=== PATIENT | male | born 1990 | race Caucasian/White ===

== ENCOUNTER 2017-11-03 09:15 | Emergency (ER) | payer MEDICAID ==
--- NOTE | 2017-11-03 09:56 | ED Physician Documentation ---
PD HPI UPPER EXT INJURY - Stated complaint Stated Complaint: R SHOULDER INJ - Chief complaint Chief Complaint: Ext Problem - History obtained from History obtained from: Patient - History of Present Illness Location: Right, Clavicle, Shoulder Type of injury: Fall (from skateboard yesterday, onto right shoulder, with pain in shoulder and collarbone area.) Where injury occurred: Street Timing - onset: Yesterday Timing - details: Abrupt onset, Still present Worsened by: Moving (abduction and rotational movement, and also with lifting heavier with right arm.), Palpating Associated symptoms: No: Weakness, Numbness Contributing factors: No: Anticoagulated Similar symptoms before: Has not had sx before Recently seen: Not recently seen Review of Systems Skin: denies: Abrasion (s), Laceration (s) Neurologic: denies: Focal weakness, Numbness, Headache, Head injury PD PAST MEDICAL HISTORY - Past Medical History Cardiovascular: None Respiratory: None Neuro: None Musculoskeletal: None - Present Medications Home Medications: Ambulatory Orders Medication Instructions Recorded Confirmed HYDROcod/ACETAM 5/325 [[place] 5/325] 1 tab PO Q6H PRN #15 tablet 11/03/17 - Allergies Allergies/Adverse Reactions: Allergies Allergy/AdvReac Type Severity Reaction Status Date / Time No Known Drug Allergies Allergy Verified 11/03/17 09:49 PD ED PE NORMAL - Vitals Vital signs reviewed: Yes - General General: Alert and oriented X 3, No acute distress, Well developed/nourished - HEENT HEENT: Moist mucous membranes, Pharynx benign, Dentition benign - Neck Neck: Supple, no meningeal sign, No adenopathy - Cardiac Cardiac: RRR, No murmur - Derm Derm: Normal color, Warm and dry, No rash - Extremities Extremities: Other (right clavicle area with tenderness and some swelling. There is not any tenderness along proximal humerus area. ) Results - Vitals Vitals: Vital Signs - 24 hr 11/03/17 11/03/17 09:27 11:05 Temperature 36.6 C 36.8 C Heart Rate 87 88 Respiratory 18 18 Rate Blood Pressure 166/98 H 163/88 H O2 Saturation 100 100 Oxygen O2 Source Room air - Rads (name of study) right shoulder Radiology: Prelim report reviewed (mid shaft clavicle fracture. ) PD MEDICAL DECISION MAKING - ED course Complexity details: reviewed results, re-evaluated patient, d/w patient Departure - Departure Disposition: 01 Home, Self Care Clinical Impression: Fall from skateboard, initial encounter Right clavicle fracture Qualifiers: Encounter type: initial encounter Clavicle location: shaft Fracture type: closed Fracture alignment: nondisplaced Qualified Code(s): S42.024A - Nondisplaced fracture of shaft of right clavicle, initial encounter for closed fracture Condition: Stable Record reviewed to determine appropriate education?: Yes Instructions: ED Fx Clavicle Follow-Up: Donis Ross MD [Provider Admit Priv/Credential] - Prescriptions: HYDROcod/ACETAM 5/325 [[place] 5/325] 1 tab PO Q6H PRN #15 tablet PRN Reason: Pain Comments: Sling for comfort for the arm. Avoid overhead reaching push pull and heavy lifting in particular for the next 3-4 weeks. Follow-up with orthopedics in about 1-1-1/2 weeks, call today for an appointment. Tylenol or ibuprofen if needed for pains. Add hydrocodone if needed for worse pain. This will take about a month to heal up fully. Discharge Date/Time: 11/03/17 11:05
--- NOTE | 2017-11-03 10:26 | XRAY Preliminary Report ---
Exam: XR SHOULDER 3 VIEW RT IMPRESSION: 1. Middle third clavicular fracture as described. 2. No articular abnormality identified. [facility] SITE ID: [id number]
--- NOTE | 2017-11-03 10:27 | XRAY Report ---
EXAM: RIGHT SHOULDER RADIOGRAPHY EXAM DATE: 11/03/2017 10:15 AM. CLINICAL HISTORY: Right shoulder pain. Fell off skateboard last night. COMPARISON: None. TECHNIQUE: 3 views. FINDINGS: Bones: Slightly displaced middle third clavicular fracture with minor cephalad angulation of the frac ture apex. Joints: No subluxation. Glenohumeral and acromioclavicular joints are unremarkable. Soft tissues: Swelling about the clavicular fracture. No periarticular calcification. IMPRESSION: 1. Middle third clavicular fracture as described. 2. No articular abnormality identified. [facility] Referring Provider Line: [phone] SITE ID: [id number]
[2017-11-03] MEDS ORDERED: IBUPROFEN 600 MG TABLET PO STA (10:49)
[2017-11-03] MEDS ORDERED: HYDROcod/ACETAM 5/325 MG TABLET PO STA (10:49)
[2017-11-03 11:41] VITALS: BP 163/88
== END 2017-11-03 11:05 | disposition home or self-care (01) ==
LOC: ED 09:15
DX: S42.021A Displaced fracture of shaft of right clavicle, initial encounter for closed fracture (principal); V00.131A Fall from skateboard, initial encounter; Y93.51 Activity, roller skating (inline) and skateboarding; Y92.410 Unspecified street and highway as the place of occurrence of the external cause
CPT/HCPCS: 73030; 99283; 99284; A9270

== ENCOUNTER 2020-06-26 07:57 | Emergency (ER) | payer SELFPAY ==
--- NOTE | 2020-06-26 08:59 | XRAY Report ---
PROCEDURE: Ankle 3 View RT INDICATIONS: Right ankle pain TECHNIQUE: 3 views of the ankle were acquired. COMPARISON: None FINDINGS: Bones: No fracture or dislocation. The ankle mortise is congruent and maintained. No suspicious lytic or blastic osseous lesion. Soft tissues: Moderate sized tibiotalar joint effusion. Achilles tendon appears normal. IMPRESSION: Moderate-sized tibiotalar joint effusion without acute osseous finding. Findings suggest a possible ligamentous injury. MRI may be helpful if symptoms persist. Reviewed by: Beau Naranjo MD on 06/26/2020 8:57 AM PST Approved by: Beau Naranjo MD on 06/26/2020 8:57 AM PST Station ID: [id number]
--- NOTE | 2020-06-26 08:59 | XRAY Report ---
PROCEDURE: Foot 3 View RT INDICATIONS: Right foot pain TECHNIQUE: 3 views of the foot were acquired. COMPARISON: None FINDINGS: Bones: No fracture or dislocation. Joint spaces are congruent and maintained. No suspicious lytic or blastic osseous lesion. Soft tissues: No radiopaque foreign body. Achilles tendon appears normal. IMPRESSION: No acute finding. Reviewed by: Beau Naranjo MD on 06/26/2020 8:58 AM [facility] Approved by: Beau Naranjo MD on 06/26/2020 8:58 AM [facility] Station ID: [id number]
[2020-06-26 09:33] VITALS: BP 125/75
--- NOTE | 2020-06-26 17:30 | ED Physician Documentation ---
History of Present Illness - Stated complaint Stated Complaint: RT ANKLE INJ - Chief complaint Chief Complaint: Trauma Ext - History obtained from History obtained from: Patient - Additonal information Additional information: 29-year-old man presents with right ankle pain status post tripping and twisting it a few days ago. He also states that he had a brush with a car on Friday but that this is unrelated and that he has no symptoms from that. Patient was ambulatory immediately after twisting it and is ambulatory now but states that he is experiencing swelling and mild pain. Pain is aching, worse with range of motion, localized to the lateral ankle, associated with swelling. Denies fevers, redness at the site, warmth. Review of Systems Constitutional: denies: Fever, Chills Skin: denies: Rash, Lesions Musculoskeletal: reports: Joint pain PD PAST MEDICAL HISTORY - Past Medical History Past Medical History: Yes Cardiovascular: None Respiratory: None Neuro: None Endocrine/Autoimmune: None GI: None : None HEENT: None Psych: None Musculoskeletal: None Derm: None - Past Surgical History Past Surgical History: No - Allergies Allergies/Adverse Reactions: Allergies Allergy/AdvReac Type Severity Reaction Status Date / Time amoxicillin Allergy Hives Verified 06/26/20 07:59 - Social History Does the pt smoke?: Yes Smoking Status: Current every day smoker Does the pt drink ETOH?: No Does the pt have substance abuse?: Yes Substance Use and Type: Marijuana - Immunizations Immunizations are current?: Yes - POLST Patient has POLST: No PD ED PE NORMAL - Vitals Vital signs reviewed: Yes - General General: Alert and oriented X 3 - HEENT HEENT: Atraumatic - Extremities Extremities: Other (R ankle with discomfort to palpation of anterior lateral malleolus. also with swelling anterior to the lateral malleolus. able to bear weight. from of the ankle. otherwise nontender.) Results - Vitals Vitals: Vital Signs - 24 hr 06/26/20 06/26/20 07:59 09:32 Temperature 36.5 C 36.7 C Heart Rate 91 60 Respiratory 16 16 Rate Blood Pressure 154/93 H 125/75 O2 Saturation 99 99 Oxygen O2 Source Room air PD MEDICAL DECISION MAKING - ED course Complexity details: reviewed results, d/w patient ED course: 29-year-old man presents withAnkle sprain with effusion identified on x-ray. Posterior splint was initially ordered but because of patient's transient status it was agreed that he would do better with a gel splint. Crutches supplied to the patient. Follow up PCP. Strict return precautions given Departure - Departure Disposition: 01 Home, Self Care Clinical Impression: Ankle effusion, Ankle pain Condition: Good Instructions: ED Sprain Ankle W X Ray Comments: You have been seen in the emergency department for ankle pain. It is likely that you have a mild to moderate sprain. The x-ray is showing no breaks in the bones but there is fluid around the area that is hurting you. This is called an effusion, And is most often caused by a small tear in the ligament (sprain). Return for any new or worsening symptoms. Discharge Date/Time: 06/26/20 09:38
== END 2020-06-26 09:38 | disposition home or self-care (01) ==
LOC: ED 07:57
DX: M25.471 Effusion, right ankle (principal); X50.1XXA Overexertion from prolonged static or awkward postures, initial encounter; F17.200 Nicotine dependence, unspecified, uncomplicated
CPT/HCPCS: 99282; 99283

== ENCOUNTER 2022-02-02 23:45 | Outpatient (CLI) | payer MEDICAID | END 2022-02-02 23:46 | disposition critical access hospital (66) | LOC: EMS 23:45 | DX: R45.6 Violent behavior (principal); R45.1 Restlessness and agitation; Z72.89 Other problems related to lifestyle; Z78.1 Physical restraint status | CPT/HCPCS: A0425; A0429; A0999 ==

== ENCOUNTER 2022-02-03 00:05 | Emergency (ER) | payer OTHER, MEDICAID ==
--- NOTE | 2022-02-03 00:05 | ED Physician Documentation ---
History of Present Illness - Stated complaint Stated Complaint: ETOH, COMBATIVE - History obtained from History obtained from: Police, Other (patient does not provide any pertinent / useful contribution to HPI/ROS; he is repeatedly yelling , using explitives) - Additonal information Additional information: Patient is brought to ED by police; he is in restraints on arrival with a spit guard over his head. Patient is yelling loudly throughout this encounter , frequently using expletives. When I try to introduce myself, he repeatedly interrupts, yelling "are you a doctor?" I am eventually able to introduce myself and he immediately demands I take the spit guard off of his head; I explain that I need to talk with him first and perform a brief medical exam, he immediately resumed yelling at me and others. I was able to perform a limited exam (auscultation of lungs and anterior chest). Per police, 911 was called by a local bar requesting patient be removed from the premises and that patient was combative with police; he is under arrest and he is brought to ED for medical clearance Review of Systems Unable to obtain: Uncooperative PD PAST MEDICAL HISTORY - Allergies Allergies/Adverse Reactions: Allergies Allergy/AdvReac Type Severity Reaction Status Date / Time amoxicillin Allergy Hives Verified 02/03/22 00:15 PD ED PE NORMAL - Vitals Vital signs reviewed: Yes - General General: Well developed/nourished - Cardiac Cardiac: No murmur - Respiratory Respiratory: No respiratory distress, Clear bilaterally PD ED PE EXPANDED - General General: Alert - Cardiac Cardiac: Tachy, Regular Rhythm - Psych Psych: Agitated, Combative Results - Vitals Vitals: Vital Signs - 24 hr 02/03/22 00:10 Temperature 36.6 C Heart Rate 120 H Respiratory 18 Rate Blood Pressure 158/73 H O2 Saturation 95 Oxygen O2 Source Room air PD MEDICAL DECISION MAKING - ED course Complexity details: considered differential Departure - Departure Disposition: 01 Home, Self Care Clinical Impression: Agitation Condition: Good Discharge Date/Time: 02/03/22 00:22
[2022-02-03 00:13] VITALS: BP 158/73
== END 2022-02-03 00:22 | disposition home or self-care (01) ==
LOC: EDUNIT# → ED 00:05
DX: Z02.89 Encounter for other administrative examinations (principal); R45.1 Restlessness and agitation
CPT/HCPCS: 99282; 99283

== ENCOUNTER 2023-01-07 14:59 | Outpatient (CLI) | payer OTHER ==
[2023-01-07 15:09] LABS: BASOPHILS % (AUTO) 0.6 %; EOSINOPHILS # (AUTO) 0.1 10^3/uL (0.0-0.7); EOSINOPHILS % (AUTO) 2.3 %; HCT - HEMATOCRIT 51.8 % (42.0-52.0); HGB - HEMOGLOBIN 17.8 g/dL (14.0-18.0); LYMPHOCYTES # (AUTO) 1.6 10^3/uL (1.5-3.5); LYMPHOCYTES % (AUTO) 25.2 %; MEAN CORPUSCULAR HEMOGLOBIN 30.3 pg (27.0-31.0); MEAN CORPUSCULAR HGB CONC 34.4 g/dL (32.0-36.0); MEAN CORPUSCULAR VOLUME 88.1 fL (80.0-94.0); MEAN PLATELET VOLUME 9.7 fL (7.4-11.4); MONOCYTES # (AUTO) 0.5 10^3/uL (0.0-1.0); MONOCYTES % (AUTO) 7.6 %; NEUTROPHILS % (AUTO) 64.1 %; PLT - PLATELET COUNT 210 10^3/uL (130-450); RED BLOOD COUNT 5.88 10^6/uL (4.70-6.10); RED CELL DISTRIBUTION WIDTH 11.4 % (12.0-15.0); WHITE BLOOD COUNT 6.2 x10^3/uL (4.8-10.8)
[2023-01-07 15:26] LABS: ALBUMIN 4.7 g/dL (3.2-5.5); ALBUMIN/GLOBULIN RATIO 1.6 (1.0-2.2); BILIRUBIN,TOTAL 0.6 mg/dL (0.2-1.0); CALCIUM 9.6 mg/dL (8.5-10.3); POTASSIUM 4.5 mmol/L (3.5-5.0); TOTAL PROTEIN 7.6 g/dL (6.7-8.2)
== END 2023-01-07 15:00 | disposition home or self-care (01) ==
LOC: LAB.R 14:59
PROVIDERS: ATTEND Registered Nurse
DX: R79.89 Other specified abnormal findings of blood chemistry (principal); R68.89 Other general symptoms and signs
CPT/HCPCS: 80053; 85025